=== PATIENT | male | born 1990 | race Caucasian/White ===

== ENCOUNTER 2021-10-19 01:02 | Emergency (ER) | payer SELFPAY ==
[~2021-10-19] VITALS: Ht 182.9 cm; Wt 100.0 kg
[2021-10-19 01:18] VITALS: BP 140/82
[2021-10-19 01:32] LABS: COVID AG,FIA SOURCE NASOPHARYNGEAL
== END 2021-10-19 03:20 | disposition home or self-care (01) ==
LOC: EMS 01:05
DX: J02.9 Acute pharyngitis, unspecified (principal); R09.81 Nasal congestion; G89.29 Other chronic pain; F12.90 Cannabis use, unspecified, uncomplicated; Z20.822 Contact with and (suspected) exposure to COVID-19
CPT/HCPCS: 87426; 87430; 99283; U0003

== ENCOUNTER 2021-11-24 09:59 | Emergency (ER) | payer SELFPAY ==
[~2021-11-24] VITALS: Ht 180.3 cm; Wt 97.7 kg
[2021-11-24 10:07] VITALS: BP 155/79
== END 2021-11-24 12:00 | disposition home or self-care (01) ==
LOC: EMS 10:02
DX: Z20.822 Contact with and (suspected) exposure to COVID-19 (principal); F12.90 Cannabis use, unspecified, uncomplicated
CPT/HCPCS: 99283; U0003

== ENCOUNTER 2022-11-10 23:19 | Emergency (ER) | payer SELFPAY ==
[~2022-11-10] VITALS: Ht 180.3 cm; Wt 100.0 kg
[2022-11-10] MEDS ORDERED: [UNRECOGNIZED DRUG - REMARK] PO (23:33)
[2022-11-11] MEDS ORDERED: GuaiFENesin/D-METHORPHAN [SUGAR-FREE] 200-20MG/10 ML SYRUP UDCUP PO ONE
[2022-11-11] MEDS ORDERED: IBUPROFEN 600 MG TABLET PO ONE
[2022-11-11] MEDS ORDERED: ACETAMINOPHEN 500 MG TABLET PO ONE
[2022-11-11 00:05] LABS: COVID AG,FIA SOURCE NASOPHARYNGEAL
[2022-11-11 00:28] LABS: INFLUENZA TYPE A NEGATIVE FOR TYPE A (NEGATIVE); INFLUENZA TYPE B NEGATIVE FOR TYPE B (NEGATIVE)
[2022-11-11] MEDS ORDERED: GUAIFDM PO (00:45)
[2022-11-11] MEDS ORDERED: IBUP-1554 PO (00:45)
[2022-11-11] MEDS ORDERED: ACET-66 PO (00:45)
[2022-11-11 00:48] VITALS: BP 128/85
== END 2022-11-11 01:10 | disposition home or self-care (01) ==
LOC: EMS 23:21
DX: J06.9 Acute upper respiratory infection, unspecified (principal); R07.89 Other chest pain; F12.90 Cannabis use, unspecified, uncomplicated; K21.9 Gastro-esophageal reflux disease without esophagitis; Z20.822 Contact with and (suspected) exposure to COVID-19
CPT/HCPCS: 87804; 99284; Z7502; Z7610

== ENCOUNTER 2023-07-12 09:04 | Emergency (ER) | payer SELFPAY ==
[~2023-07-12] VITALS: Ht 180.3 cm; Wt 180.0 kg
[~2023-07-12 09:04] MED LIST: ACET-66 PO; GUAIFDM PO; IBUP-1554 PO; [UNRECOGNIZED DRUG - REMARK] PO
[2023-07-12 09:18] VITALS: TEMP 98.9
[2023-07-12] MEDS ORDERED: POVIDONE-IODINE 10% 15 ML SOLUTION UD TP ONE (10:30)
[2023-07-12] MEDS ORDERED: PERTUSS(ACELL),DIPH,TET VAC/PF 0.5 ML SYRINGE IM. ONE (10:30)
[2023-07-12] MEDS ORDERED: LIDOCAINE 1% 10 ML VIAL ID ONE (11:45)
[2023-07-12 12:05] VITALS: BP 121/76; PULSE 73; RESP 16
[2023-07-12] MEDS ORDERED: BACITRACIN 0.9 GM PACKET OINTMENT TP ONE (12:15)
== END 2023-07-12 12:40 | disposition home or self-care (01) ==
LOC: EMS 09:11
DX: S61.212A Laceration without foreign body of right middle finger without damage to nail, initial encounter (principal); F12.90 Cannabis use, unspecified, uncomplicated; Y08.89XA Assault by other specified means, initial encounter; Y93.89 Activity, other specified; Y92.89 Other specified places as the place of occurrence of the external cause; Y99.0 Civilian activity done for income or pay
CPT/HCPCS: 12001; 90471; 90715; 99283

== ENCOUNTER 2023-07-14 11:52 | Emergency (ER) | payer SELFPAY ==
[~2023-07-14] VITALS: Ht 180.3 cm; Wt 84.1 kg
[2023-07-14 12:00] VITALS: TEMP 98.3
[2023-07-14] MEDS ORDERED: CEPH-558 PO (13:50)
[2023-07-14 14:00] VITALS: BP 135/82; PULSE 60; RESP 18
== END 2023-07-14 14:03 | disposition home or self-care (01) ==
LOC: EMS 11:54
DX: S61.212D Laceration without foreign body of right middle finger without damage to nail, subsequent encounter (principal); F12.90 Cannabis use, unspecified, uncomplicated; X58.XXXD Exposure to other specified factors, subsequent encounter
CPT/HCPCS: 99283; Z7502

== ENCOUNTER 2023-07-20 10:46 | Emergency (ER) | payer SELFPAY ==
[~2023-07-20] VITALS: Ht 172.7 cm; Wt 72.7 kg
[~2023-07-20 10:46] MED LIST changes: +CEPH-558 PO
[2023-07-20 11:31] VITALS: TEMP 98.7
[2023-07-20 12:24] VITALS: BP 119/77; PULSE 2; RESP 16
== END 2023-07-20 13:00 | disposition home or self-care (01) ==
LOC: EMS 10:51
DX: S61.212D Laceration without foreign body of right middle finger without damage to nail, subsequent encounter (principal); F12.90 Cannabis use, unspecified, uncomplicated; Z48.02 Encounter for removal of sutures
CPT/HCPCS: 99281; Z7502